=== PATIENT | male | born 1955 | race African-American/Black ===

== ENCOUNTER 2016-06-24 07:21 | Day surgery (SDC) | payer OTHER ==
[~2016-06-24] VITALS: Ht 180.3 cm; Wt 130.2 kg
[~2016-06-24 07:21] MED LIST: AUGMENTIN875 MG PO; CIPRO500 MG PO; CRESTOR10 MG PO; ELIMITE 5% CREA60 GM TP; ENALAPRIL MALEA20 MG PO; ENDOCET 5-3251 EACH PO; GLUCOPHAGE1000 MG PO; GLYBURIDE5 MG PO; JOCK ITCH15 GM TP; LEVAQUIN500 MG PO; MEDROL DOSEPAK4 MG PO; METFORMIN HCL500 MG PO; METHOCARBAMOL750 MG PO; MITRAZOL 2% CRE45 GM TP; MOTRIN800 MG PO; NAPROXEN500 MG PO; PEN-VEE K,VEET500 MG PO; PERCOCET 5/31 TABLET PO; PREDNISONE20 MG PO; REGLAN10 MG PO; SKELAXIN800 MG PO; TESSALON PERLE100 MG PO; ULTRAM50 MG PO; VALIUM2 MG PO; VASOTEC20 MG PO; VASOTEC5 MG PO; VENTOLIN HFA18 GM IH; VICOPROFEN1 TABLET PO; [UNRECOGNIZED DRUG - REMARK] PO; [UNRECOGNIZED DRUG - REMARK] PO
[2016-06-24 08:42] LABS: POINT-OF-CARE METER ID UU14174212
[2016-06-24 09:02] LABS: ANION GAP 10 MEQ/L (2-14); CHLORIDE 100 MEQ/L (99-109); GFR ESTIMATE (CALCULATED) > 59 mL/min/; GLUCOSE 108 mg/dL (70-99); POTASSIUM 4.1 MEQ/L (3.7-5.4); SAMPLE HEMOLYSIS CHECK 0; SAMPLE ICTERIC CHECK 0; SAMPLE LIPEMIA CHECK 0; SODIUM 137 MEQ/L (136-147); UREA NITROGEN (BUN) 19 mg/dL (9-23)
== END 2016-06-24 09:10 | disposition home or self-care (01) ==
LOC: PAIN 07:21 → SDC 08:15 → PAIN 09:10
PROVIDERS: Anesthesiology; Anesthesiology Pain Medicine
DX: M47.816 Spondylosis without myelopathy or radiculopathy, lumbar region (principal); F41.9 Anxiety disorder, unspecified; F17.200 Nicotine dependence, unspecified, uncomplicated; I10 Essential (primary) hypertension; E11.9 Type 2 diabetes mellitus without complications; M54.5 Low back pain; Z79.899 Other long term (current) drug therapy; Z68.38 Body mass index [BMI] 38.0-38.9, adult; Z79.84 Long term (current) use of oral hypoglycemic drugs
CPT/HCPCS: 80048; 82948; 85027; 93005; J1030; J2250; J3010; S0020

== ENCOUNTER 2016-07-01 07:52 | Day surgery (SDC) | payer OTHER ==
[~2016-07-01] VITALS: Ht 180.3 cm; Wt 130.2 kg
[2016-07-01 08:19] LABS: POINT-OF-CARE METER ID UU14174212
== END 2016-07-01 09:40 | disposition home or self-care (01) ==
LOC: PAIN 07:52 → SDC 08:15 → PAIN 08:15
PROVIDERS: Anesthesiology Pain Medicine
DX: M51.16 Intervertebral disc disorders with radiculopathy, lumbar region (principal); M47.812 Spondylosis without myelopathy or radiculopathy, cervical region; M17.12 Unilateral primary osteoarthritis, left knee; M54.81 Occipital neuralgia; I49.9 Cardiac arrhythmia, unspecified; I10 Essential (primary) hypertension; J45.909 Unspecified asthma, uncomplicated; E11.9 Type 2 diabetes mellitus without complications; Z59.0 Homelessness; F17.210 Nicotine dependence, cigarettes, uncomplicated; Z79.84 Long term (current) use of oral hypoglycemic drugs; Z79.891 Long term (current) use of opiate analgesic
CPT/HCPCS: 82948; J1030; J2250; J3010; S0020

== ENCOUNTER 2016-10-29 21:55 | Inpatient (IN) | payer OTHER ==
[~2016-10-29] VITALS: Ht 182.9 cm; Wt 117.6 kg
[~2016-10-29 21:55] MED LIST changes: +CRESTOR20 MG PO
[2016-10-29 22:43] LABS: HEMATOCRIT 49.2 % (38.0-50.0); MCH 28.5 PG (29.0-34.0); MCHC 33.5 G/DL (30.0-36.0); MCV 85.1 FL (86-99); MEAN PLAT.VOLUME 9.2 uM^3 (9.0-12.4); PLATELET COUNT 331 K/uL (156-360); RBC DIS.WIDTH-CV 13.8 % (11.8-14.6); RBC DIS.WIDTH-SD 42.3 % (39-53); RED BLOOD COUNT 5.78 M/uL (4.00-5.50); WHITE BLOOD COUNT 16.3 K/uL (4.1-10.2)
[2016-10-29 22:54] LABS: CHLORIDE 101 mEq/L (99-109); POTASSIUM 4.9 mEq/L (3.7-5.4); SODIUM 139 mEq/L (136-147)
[2016-10-29 22:56] LABS: GLUCOSE 191 mg/dL (70-99)
[2016-10-29 22:57] LABS: ANION GAP 17 MEQ/L (2-14)
[2016-10-29 23:00] LABS: GFR ESTIMATE (CALCULATED) 30 mL/min/
[2016-10-29 23:01] LABS: UREA NITROGEN (BUN) 36 mg/dL (9-23)
[2016-10-29 23:03] LABS: CREATINE KINASE 285 IU/L (1-294); LIPASE 23 U/L (1.0-51.0)
[2016-10-30] VITALS (7 sets, daily range): BP systolic 130–179; BP diastolic 81–95
[2016-10-30 00:35] LABS: ADD MIUA? YES; BILIRUBIN SMALL; BLOOD NEGATIVE; COLOR YELLOW ((YELLOW)); GLUCOSE (STRIP) NEGATIVE; KETONES NEGATIVE; LEUKOCYTES NEGATIVE; NITRITE NEGATIVE; PROTEIN (STRIP) 100; SPECIFIC GRAVITY 1.025 (1.000-1.030); UROBILINOGEN 0.2 MG/DL (0.2-1.0)
[2016-10-30 00:49] LABS: BACTERIA RARE /HPF; EPITHELIAL CELLS RARE /HPF; MUCUS TRACE /LPF; RED BLOOD CELLS 0-5 /HPF (0-5); UCUL ADDED? NO; WHITE BLOOD CELLS 0-5 /HPF (0-5)
[2016-10-30 06:31] LABS: POINT-OF-CARE METER ID UU14162508
[2016-10-30 08:06] LABS: Estimated Average Glucose 148 mg/dL (70-123); HEMOGLOBIN A1c (GLYCOHEMOGLOB) 6.8 % HGB (Below 5.7)
[2016-10-30 08:10] LABS: HEMATOCRIT 43.7 % (38.0-50.0); MCH 27.8 PG (29.0-34.0); MCHC 32.5 G/DL (30.0-36.0); MCV 85.5 FL (86-99); MEAN PLAT.VOLUME 8.9 uM^3 (9.0-12.4); PLATELET COUNT 282 K/uL (156-360); RBC DIS.WIDTH-CV 13.9 % (11.8-14.6); RBC DIS.WIDTH-SD 43.7 % (39-53); RED BLOOD COUNT 5.11 M/uL (4.00-5.50); WHITE BLOOD COUNT 11.7 K/uL (4.1-10.2)
[2016-10-30 08:45] LABS: ANION GAP 10 MEQ/L (2-14); CHLORIDE 102 MEQ/L (99-109); GFR ESTIMATE (CALCULATED) > 59 mL/min/; GLUCOSE 95 mg/dL (70-99); POTASSIUM 4.5 MEQ/L (3.7-5.4); SAMPLE HEMOLYSIS CHECK 0; SAMPLE ICTERIC CHECK 0; SAMPLE LIPEMIA CHECK 0; SODIUM 138 MEQ/L (136-147); UREA NITROGEN (BUN) 33 mg/dL (9-23)
[2016-10-30] MEDS ORDERED: FENOFIBRATE145 M1 PO (12:13)
[2016-10-30 12:42] LABS: POINT-OF-CARE METER ID UU14208750
[2016-10-30 16:37] LABS: POINT-OF-CARE METER ID UU14208750
[2016-10-30 21:43] LABS: POINT-OF-CARE METER ID UU14208750
[2016-10-31 04:09] VITALS: BP 140/85
[2016-10-31 06:31] LABS: POINT-OF-CARE METER ID UU14208750
[2016-10-31 07:18] LABS: HEMATOCRIT 40.9 % (38.0-50.0); MCH 28.2 PG (29.0-34.0); MCHC 33.3 G/DL (30.0-36.0); MCV 84.7 FL (86-99); MEAN PLAT.VOLUME 8.7 uM^3 (9.0-12.4); PLATELET COUNT 280 K/uL (156-360); RBC DIS.WIDTH-CV 13.6 % (11.8-14.6); RBC DIS.WIDTH-SD 42.5 % (39-53); RED BLOOD COUNT 4.83 M/uL (4.00-5.50); WHITE BLOOD COUNT 6.6 K/uL (4.1-10.2)
[2016-10-31 07:33] VITALS: BP 134/82
[2016-10-31 07:39] LABS: ALKALINE PHOSPHATASE 54 IU/L (3-129); ANION GAP 6 MEQ/L (2-14); CHLORIDE 102 MEQ/L (99-109); GFR ESTIMATE (CALCULATED) > 59 mL/min/; GLUCOSE 113 mg/dL (70-99); POTASSIUM 4.3 MEQ/L (3.7-5.4); SAMPLE HEMOLYSIS CHECK 0; SAMPLE ICTERIC CHECK 0; SAMPLE LIPEMIA CHECK 0; SODIUM 136 MEQ/L (136-147); TOTAL BILIRUBIN 0.4 MG/DL (0.0-1.0); UREA NITROGEN (BUN) 16 mg/dL (9-23)
[2016-10-31] MEDS ORDERED: AMLODIPINE BESYL5 MG PO (10:25)
[2016-10-31 12:03] LABS: POINT-OF-CARE METER ID UU14208750
== END 2016-10-31 12:27 | disposition home or self-care (01) | DRG 684 ==
LOC: EME → EDBD 21:55 → EDOF 10-30 02:35 → 2EAST 10-30 02:35 → ENRESERV 10-30 02:37 → 2EAST 10-30 03:25
PROVIDERS: Internal Medicine
PROC: 5A09357 Assistance with Respiratory Ventilation, Less than 24 Consecutive Hours, Continuous Positive Airway Pressure (ICD-10-PCS; principal; 2016-10-30)
DX: N17.9 Acute kidney failure, unspecified (principal); E86.0 Dehydration; A08.4 Viral intestinal infection, unspecified; E11.9 Type 2 diabetes mellitus without complications; I10 Essential (primary) hypertension; G47.33 Obstructive sleep apnea (adult) (pediatric); E78.5 Hyperlipidemia, unspecified; J45.909 Unspecified asthma, uncomplicated; F17.210 Nicotine dependence, cigarettes, uncomplicated; G89.29 Other chronic pain; M51.16 Intervertebral disc disorders with radiculopathy, lumbar region; M17.11 Unilateral primary osteoarthritis, right knee; M17.12 Unilateral primary osteoarthritis, left knee; E66.01 Morbid (severe) obesity due to excess calories; Z68.35 Body mass index [BMI] 35.0-35.9, adult; Z59.0 Homelessness
CPT/HCPCS: 73552; 74176; 80048; 80053; 81003; 82550; 82948; 83036; 83630; 83690; 85027; 87177; 87493; 87506; 93971; 94660; 94799; 99281; 99284; J1815; J2405; J7030

== ENCOUNTER 2016-11-06 07:05 | Day surgery (SDC) | payer OTHER ==
[~2016-11-06] VITALS: Ht 180.3 cm; Wt 130.2 kg
[~2016-11-06 07:05] MED LIST changes: +AMLODIPINE BESYL5 MG PO; +FENOFIBRATE145 M1 PO
[2016-11-06 07:43] LABS: POINT-OF-CARE METER ID UU13113694
== END 2016-11-06 08:55 | disposition home or self-care (01) ==
LOC: PAIN 07:05 → SDC 07:30 → PAIN 07:30
PROVIDERS: Anesthesiology Pain Medicine
DX: M47.26 Other spondylosis with radiculopathy, lumbar region (principal); M51.16 Intervertebral disc disorders with radiculopathy, lumbar region; M54.5 Low back pain; G89.29 Other chronic pain; M47.812 Spondylosis without myelopathy or radiculopathy, cervical region; I10 Essential (primary) hypertension; E11.9 Type 2 diabetes mellitus without complications; F17.200 Nicotine dependence, unspecified, uncomplicated; Z59.0 Homelessness; Z79.84 Long term (current) use of oral hypoglycemic drugs; Z79.891 Long term (current) use of opiate analgesic
CPT/HCPCS: 82948; J1030; J2250; J3010; S0020

== ENCOUNTER 2016-11-18 14:25 | Day surgery (SDC) | payer OTHER ==
[~2016-11-18] VITALS: Ht 182.9 cm; Wt 116.6 kg
[~2016-11-18 14:25] MED LIST changes: -FENOFIBRATE145 M1 PO; +NORVASC5 MG PO; +TRICOR145 MG PO
[2016-11-18 14:51] LABS: POINT-OF-CARE METER ID UU14174212
== END 2016-11-18 16:55 | disposition home or self-care (01) ==
LOC: PAIN 14:25 → SDC 15:00 → PAIN 15:00
PROVIDERS: Anesthesiology Pain Medicine
DX: M47.26 Other spondylosis with radiculopathy, lumbar region (principal); M51.16 Intervertebral disc disorders with radiculopathy, lumbar region; M54.5 Low back pain; G89.29 Other chronic pain; M47.812 Spondylosis without myelopathy or radiculopathy, cervical region; M54.81 Occipital neuralgia; I10 Essential (primary) hypertension; E11.9 Type 2 diabetes mellitus without complications; F17.210 Nicotine dependence, cigarettes, uncomplicated; Z79.84 Long term (current) use of oral hypoglycemic drugs; Z79.891 Long term (current) use of opiate analgesic
CPT/HCPCS: 82948; J1030; J2250; J3010; S0020

== ENCOUNTER 2017-02-27 11:08 | Emergency (ER) | payer OTHER ==
[~2017-02-27] VITALS: Ht 182.9 cm; Wt 124.1 kg
[2017-02-27 11:37] VITALS: BP 101/51
[2017-02-27 12:49] LABS: HEMATOCRIT 39.9 % (38.0-50.0); MCH 29.2 PG (29.0-34.0); MCHC 33.3 G/DL (30.0-36.0); MCV 87.5 FL (86-99); MEAN PLAT.VOLUME 9.5 uM^3 (9.0-12.4); PLATELET COUNT 226 K/uL (156-360); RBC DIS.WIDTH-CV 13.3 % (11.8-14.6); RBC DIS.WIDTH-SD 42.5 % (39-53); RED BLOOD COUNT 4.56 M/uL (4.00-5.50); WHITE BLOOD COUNT 6.5 K/uL (4.1-10.2)
[2017-02-27 12:53] LABS: CHLORIDE 106 mEq/L (99-109); SODIUM 139 mEq/L (136-147)
[2017-02-27 12:55] LABS: GLUCOSE 82 mg/dL (70-99)
[2017-02-27 12:57] LABS: ANION GAP 8 MEQ/L (2-14)
[2017-02-27 12:59] LABS: GFR ESTIMATE (CALCULATED) > 59 mL/min/ (58.99-99999)
[2017-02-27 13:00] LABS: UREA NITROGEN (BUN) 17 mg/dL (9-23)
[2017-02-27] MEDS ORDERED: MUCINEX FAST-M1 EA13 PO (13:35)
[2017-02-27] MEDS ORDERED: FLONASE16 G1 BOTH NARES (13:36)
== END 2017-02-27 13:52 | disposition home or self-care (01) ==
LOC: EME 11:08
PROVIDERS: Nurse Practitioner Family
DX: J32.9 Chronic sinusitis, unspecified (principal); J06.9 Acute upper respiratory infection, unspecified; I10 Essential (primary) hypertension; E11.9 Type 2 diabetes mellitus without complications; F17.210 Nicotine dependence, cigarettes, uncomplicated
CPT/HCPCS: 71020; 80048; 85027; 94640

== ENCOUNTER 2017-09-24 06:50 | Emergency (ER) | payer OTHER ==
[~2017-09-24] VITALS: Ht 182.9 cm; Wt 125.3 kg
[~2017-09-24 06:50] MED LIST changes: +FLONASE16 G1 BOTH NARES; +MUCINEX FAST-M1 EA13 PO
[2017-09-24 06:52] VITALS: BP 163/104
[2017-09-24] MEDS ORDERED: PERCOCET 5/31 TABLET PO (07:45)
== END 2017-09-24 07:57 | disposition home or self-care (01) ==
LOC: EME 06:50
DX: S30.0XXA Contusion of lower back and pelvis, initial encounter (principal); S80.02XA Contusion of left knee, initial encounter; W01.0XXA Fall on same level from slipping, tripping and stumbling without subsequent striking against object, initial encounter; E11.9 Type 2 diabetes mellitus without complications; E78.5 Hyperlipidemia, unspecified; I10 Essential (primary) hypertension; F17.200 Nicotine dependence, unspecified, uncomplicated
CPT/HCPCS: 72100; 73564